=== PATIENT | female | born 1955 | race Caucasian/White ===

== ENCOUNTER 2023-03-18 12:50 | Emergency (ER) | payer OTHER, SELFPAY ==
[2023-03-18] VITALS (13 sets, daily range): BP systolic 129–181; BP diastolic 60–83; PULSE 65–76; RESP 18; TEMP 36.7; O2SAT 90–95; BMI 24.7
--- NOTE | 2023-03-18 13:18 | ED_ITS ---
HPI - General Adult General Chief complaint: Abdominal Pain Stated complaint: post op T-30 pain is getting worse Time Seen by Provider: 03/18/23 12:55 Source: patient and family Mode of arrival: Ambulatory History of Present Illness HPI narrative: Patient is a 67-year-old female who is here for evaluation of approximately 1 month of worsening abdominal discomfort. About 1 month ago at an outside facility she would a laparoscopic cholecystectomy. She stated that there were complications with this procedure. She has followed up with the general surgeon since then who told her that she needs to follow up with her primary doctor give n her ongoing discomfort. She is not having any fevers. Is having nausea but no vomiting. Pain is on the right side and upper abdomen. No change in bowel habits. No urinary symptoms. Related Data Allergies Allergy/AdvReac Type Severity Reaction Status Date / Time gabapentin AdvReac Confusion Verified 03/18/23 14:38 Review of Systems Review of Systems ROS Unobtainable: All systems reviewed & are unremarkable except as noted in HPI and below Patient History Social History Smoking Status: Current every day smoker Smoking Status: Current every day smoker tobacco type: cigarettes alcohol intake frequency: holidays/special occasions only Substance Use Type: does not use Exam Initial Vital Signs Initial Vital Signs: Vital Signs Temperature 98.1 F 03/18/23 13:04 Pulse Rate 71 03/18/23 13:04 Respiratory Rate 18 03/18/23 13:04 Blood Pressure 181/83 H 03/18/23 13:04 Pulse Oximetry 95 03/18/23 13:04 Oxygen Delivery Method Room Air 03/18/23 13:04 Const General: cooperative, comfortable and No ill appearing Resp Effort & Inspection: normal respiratory effort Cardio Rate: regular rate GI Inspection: normal to inspection and non-distended Palpation: soft, No firm and tender (Right side abdomen) Skin General: no rashes or lesions noted Neuro General: patient alert, patient awake and moves all extremities Extrem General: normal to inspection and capillary refill normal Course Orders Ordered: ED Orders 03/18/23 13:19 CT abdomen pelvis w con Stat 03/18/23 14:10 Complete Blood Count AUTO DIFF Stat Comprehensive Metabolic Panel Stat Lipase Stat Discontinued Medications Sodium Chloride (Normal Saline 0.9%) 1,000 mls @ 1,000 mls/hr IV BOLUS ONE Stop: 03/18/23 14:18 Last Infusion: 03/18/23 14:39 Dose: 0 mls/hr Documented By: Admin: 03/18/23 13:52 Dose: 1,000 mls/hr Documented By: SHA Ketorolac Tromethamine (Ketorolac 30 Mg/Ml Vial) 30 mg IV NOW ONE Stop: 03/18/23 14:41 Last Admin: 03/18/23 14:45 Dose: 30 mg Documented By: NIVIA Ondansetron HCl (Ondansetron 4 Mg/2 Ml Inj) 4 mg IV NOW ONE Stop: 03/18/23 14:41 Last Admin: 03/18/23 14:46 Dose: 4 mg Documented By: NIVIA Vital Signs Vital signs: Vital Signs - 8 hr 03/18/23 13:04 03/18/23 13:09 03/18/23 13:30 Temperature 98.1 F Pulse Rate 71 74 76 Respiratory Rate 18 Blood Pressure 181/83 H Pulse Oximetry 95 94 92 Oxygen Delivery Method Room Air 03/18/23 14:00 03/18/23 14:23 03/18/23 14:23 Temperature Pulse Rate 72 71 Respiratory Rate Blood Pressure 155/74 H Pulse Oximetry 92 93 Oxygen Delivery Method 03/18/23 14:30 03/18/23 14:30 03/18/23 14:45 Temperature Pulse Rate 72 Respiratory Rate Blood Pressure 138/70 152/81 H Pulse Oximetry 93 Oxygen Delivery Method 03/18/23 14:45 03/18/23 15:00 03/18/23 15:01 Temperature Pulse Rate 71 65 70 Respiratory Rate Blood Pressure Pulse Oximetry 92 91 92 Oxygen Delivery Method 03/18/23 15:01 Temperature Pulse Rate Respiratory Rate Blood Pressure 129/60 Pulse Oximetry Oxygen Delivery Method Medical Decision Making Lab Data Lab results reviewed: Yes I reviewed the patient's lab results. 03/18/23 14:10 03/18/23 14:10 Labs: Lab Results 03/18/23 03/18/23 Range/Units 14:10 14:10 WBC 9.3 (4.5-11.0) X10^3/uL RBC 4.47 (4.0-5.2) X10^6/uL Hgb 13.5 (12.0-16.0) g/dL Hct 40.0 (36-46) % MCV 89.6 (80-100) fL MCH 30.1 (26-34) PG MCHC 33.6 (30-36) % RDW 13.1 (11.6-14.8) % Plt Count 362 (150-400) X10^3/uL Neut % (Auto) 66.1 (50-75) % Lymph % (Auto) 25.3 (25-40) % Sabine % (Auto) 7.2 (3-14) % Eos % (Auto) 1.2 L (2-4) % Baso % (Auto) 0.2 (0-2) % Neut # (Auto) 6200 (9499-2760) /uL Lymph # (Auto) 2400 (6711-3588) /uL Sabine # (Auto) 700 (0-900) /uL Eos # (Auto) 100 (0-450) /uL Baso # (Auto) 0 (0-100) /uL Sodium 136 L (137-145) mmol/L Potassium 3.8 (3.4-5.1) mmol/L Chloride 101 (98-107) mmol/L Carbon Dioxide 30 (22-32) mmol/L BUN 26 H (7-17) mg/dL Creatinine 0.56 (0.52-1.04) mg/dL Estimated GFR > 60 (>60) mL/min BUN/Creatinine Ratio 46.4 H (6-22) Glucose 94 (80-110) mg/dL Calcium 8.4 (8.4-10.2) mg/dL Total Bilirubin 0.4 (0.2-1.3) mg/dL AST 82 H (14-36) IU/L ALT 69 H (<35) IU/L Alkaline Phosphatase 149 H (38-126) U/L Total Protein 6.4 (6.3-8.2) g/dL Albumin 3.7 (3.5-5.0) g/dL Globulin 2.7 (1.7-4.1) g/dL Albumin/Globulin Ratio 1.4 (1.0-2.8) Lipase 171 (23-300) U/L Imaging Data CT scan - abdomen/pelvis: Radiologist's Impression: ROCEDURE:? CT ABDOMEN PELVIS W CON ? INDICATIONS:? Lap ramesh 1 month ago with continued pain ? TECHNIQUE:? After the administration of intravenous contrast, axial sections acquired from the lung bases to the pubic symphysis.? Coronal and sagittal reformats were performed.? For radiation dose reduction, the following was used:? automated exposure control, adjustment of mA and/or kV according to patient size.? ? COMPARISON:? None. ? FINDINGS:? Image quality:? Excellent.? ? Lung bases:? Unremarkable. Heart:? Median sternotomy wires are seen.? Heart size is normal, no pericardial effusion. ? ABDOMEN: Liver:? Hepatic steatosis is seen, no discrete hepatic lesion.? Liver size is enlarged..? ? Gallbladder:? Gallbladder is surgically absent.? Small amount of fluid and air is seen within gallbladder fossa likely represent postsurgical changes.? No discrete drainable peripherally enhancing fluid collection is seen. Biliary ducts:? Unremarkable.? ? Pancreas:? Unremarkable.? ? Spleen:? Unremarkable.? ? Adrenal Glands:? Unremarkable.? ? Kidneys and Ureters:? Unremarkable.? ? ? Stomach and Bowel:? Stomach, small bowel loops, and colon are unremarkable.? Extensive sigmoid diverticulosis is seen without sigmoid colon wall thickening or mesenteric fat stranding.? No abscess collection. Peritoneum:? No abnormal intraperitoneal fluid.? No free air.? ? Ventral Wall: ? No hernias.? Abdominal Nodes:? No retroperitoneal or mesenteric adenopathy by size criteria.? Vessels:? Aorta and inferior vena cava are normal in size.? ? PELVIS: Pelvic Organs:? Unremarkable.? ? Bladder:? Unremarkable.? ? Pelvic Nodes: No enlarged lymph nodes.? Miscellaneous: No hernias are seen. ? ? ? Bones:? No suspicious bony lesions.? No acute vertebral body compression fracture. ? ? IMPRESSION:? 1. Patient is status post cholecystectomy with small amount of fluid and air within gallbladder fossa most likely represent postsurgical changes.? No discrete drainable abscess collection. ? 2. Hepatomegaly and hepatic steatosis, no discrete hepatic lesion. ? 3. No bowel obstruction or abnormal bowel wall thickening.? No free fluid or free air.? Sigmoid diverticulosis without CT evidence of acute diverticulitis.? MDM Narrative Medical decision making narrative: Patient does have a benign exam. Her labs are unremarkable. Has had discomfort for the past month since she had her surgery. There is no acute pathology noted on the CT scan today. There was no signs of perforation obstruction or bile leak. Advised the patient that she contact the operative surgeon and also her primary doctor for a follow-up. She was given return precautions. She expressed understanding and agreement. Discharge Plan Departure Patient Disposition: Home Clinical Impression: Abdominal pain Instructions: DI for Abdominal Pain-Adult Activity Restrictions/Additional Instructions: Your workup here in the emergency department is very reassuring and does not show any signs of acute surgical issues in your abdomen. Unfortunately this means that I do not have a specific explanation for your discomfort. There is no indication to do any antibiotics or any further surgery based on what we have seen today. I recommend that you contact the operative surgeon and also your primary doctor as you may need a colonoscopy. Return to the emergency department for worsening symptoms. Referrals: Miscellaneous,[facility] [Non-Staff] - Stand Alone Forms: Patient Portal/API
--- NOTE | 2023-03-18 13:19 | DI.CT.S_ITS ---
PROCEDURE: CT ABDOMEN PELVIS W CON INDICATIONS: Lap ramesh 1 month ago with continued pain TECHNIQUE: After the administration of intravenous contrast, axial sections acquired from the lung bases to the pubic symphysis. Coronal and sagittal reformats were performed. For radiation dose reduction, the following was used: automated exposure control, adjustment of mA and/or kV according to patient size. COMPARISON: None. FINDINGS: Image quality: Excellent. Lung bases: Unremarkable. Heart: Median sternotomy wires are seen. Heart size is normal, no pericardial effusion. ABDOMEN: Liver: Hepatic steatosis is seen, no discrete hepatic lesion. Liver size is enlarged.. Gallbladder: Gallbladder is surgically absent. Small amount of fluid and air is seen within gallbladder fossa likely represent postsurgical changes. No discrete drainable peripherally enhancing fluid collection is seen. Biliary ducts: Unremarkable. Pancreas: Unremarkable. Spleen: Unremarkable. Adrenal Glands: Unremarkable. Kidneys and Ureters: Unremarkable. Stomach and Bowel: Stomach, small bowel loops, and colon are unremarkable. Extensive sigmoid diverticulosis is seen without sigmoid colon wall thickening or mesenteric fat stranding. No abscess collection. Peritoneum: No abnormal intraperitoneal fluid. No free air. Ventral Wall: No hernias. Abdominal Nodes: No retroperitoneal or mesenteric adenopathy by size criteria. Vessels: Aorta and inferior vena cava are normal in size. PELVIS: Pelvic Organs: Unremarkable. Bladder: Unremarkable. Pelvic Nodes: No enlarged lymph nodes. Miscellaneous: No hernias are seen. Bones: No suspicious bony lesions. No acute vertebral body compression fracture. IMPRESSION: 1. Patient is status post cholecystectomy with small amount of fluid and air within gallbladder fossa most likely represent postsurgical changes. No discrete drainable abscess collection. 2. Hepatomegaly and hepatic steatosis, no discrete hepatic lesion. 3. No bowel obstruction or abnormal bowel wall thickening. No free fluid or free air. Sigmoid diverticulosis without CT evidence of acute diverticulitis. Dictated by: Gagan Rushing M.D. on 03/18/2023 at 15:21 Approved by: Gagan Rushing M.D. on 03/18/2023 at 15:29
[2023-03-18] MEDS: SODIUM CHLORIDE 0.9% 1,000 ML 1000 ML IV (13:52)
[2023-03-18 14:21] LABS: Add Manual Diff / Slide Review NO; Basophils Absolute Auto 0 /uL (0-100); Basophils Percent Auto 0.2 % (0-2); Eosinophils Absolute Auto 100 /uL (0-450); Eosinophils Percent Auto 1.2 % (2-4); Hemoglobin 13.5 g/dL (12.0-16.0); Lymphocytes Absolute Auto 2400 /uL (1100-4500); Lymphocytes Percent Auto 25.3 % (25-40); Mean Corpuscular HGB Conc 33.6 % (30-36); Mean Corpuscular Hemoglobin 30.1 PG (26-34); Mean Corpuscular Volume 89.6 fL (80-100); Monocytes Absolute Auto 700 /uL (0-900); Monocytes Percent Auto 7.2 % (3-14); Neutrophils Absolute Auto 6200 /uL (1500-7000); Neutrophils Percent Auto 66.1 % (50-75); Platelet Count 362 X10^3/uL (150-400); Red Blood Cell Count 4.47 X10^6/uL (4.0-5.2); Red Cell Distribution Width 13.1 % (11.6-14.8); White Blood Cell Count 9.3 X10^3/uL (4.5-11.0)
[2023-03-18] MEDS: KETOROLAC 30 MG/ML VIAL IV (14:45)
[2023-03-18] MEDS: ONDANSETRON 4 MG/2 ML INJ IV (14:46)
[2023-03-18 14:56] LABS: Alanine Aminotransferase 69 IU/L (<35); Albumin 3.7 g/dL (3.5-5.0); Albumin Globulin Ratio 1.4 (1.0-2.8); Alkaline Phosphatase 149 U/L (38-126); Aspartate Aminotransferase 82 IU/L (14-36); BUN Creatinine Ratio 46.4 (6-22); Bilirubin Total 0.4 mg/dL (0.2-1.3); Blood Urea Nitrogen 26 mg/dL (7-17); Calcium 8.4 mg/dL (8.4-10.2); Carbon Dioxide 30 mmol/L (22-32); Chloride 101 mmol/L (98-107); Estimated Glomerular Filt Rate > 60 mL/min (>60); Globulin 2.7 g/dL (1.7-4.1); Glucose 94 mg/dL (80-110); HEMOLYSIS < 15 (0-50); Lipase 171 U/L (23-300); Potassium 3.8 mmol/L (3.4-5.1); Sodium 136 mmol/L (137-145); Total Protein 6.4 g/dL (6.3-8.2)
== END 2023-03-18 16:04 | disposition home or self-care (01) ==
PROVIDERS: Emergency Provider Emergency Medicine; PCP Family Medicine
DX: R10.9 Unspecified abdominal pain (principal)
CPT/HCPCS: 36415; 74177; 80053; 83690; 85025; 96361; 96374; 96375; 99284; J1885; J2405; Q9967